=== PATIENT | male | born 1965 | race Hispanic/Latino ===

== ENCOUNTER 2025-02-09 13:53 | Outpatient (CLI) | payer SELFPAY | END 2025-02-09 13:54 | disposition home or self-care (01) | LOC: CSHWCC 13:53 | PROVIDERS: ATTEND Nurse Practitioner Family | DX: T21.22XD Burn of second degree of abdominal wall, subsequent encounter (principal); T24.012D Burn of unspecified degree of left thigh, subsequent encounter | CPT/HCPCS: 16025; 99214; G0463 ==

== ENCOUNTER 2025-02-16 13:51 | Outpatient (CLI) | payer SELFPAY | END 2025-02-16 13:52 | disposition home or self-care (01) | LOC: CSHWCC 13:51 | PROVIDERS: ATTEND Nurse Practitioner Family | DX: T21.22XD Burn of second degree of abdominal wall, subsequent encounter (principal); T24.012D Burn of unspecified degree of left thigh, subsequent encounter | CPT/HCPCS: 16020 ==

== ENCOUNTER 2025-03-03 14:15 | Outpatient (CLI) | payer SELFPAY | END 2025-03-03 14:16 | disposition home or self-care (01) | LOC: CSHWCC 14:15 | PROVIDERS: ATTEND Nurse Practitioner Family | DX: T21.22XD Burn of second degree of abdominal wall, subsequent encounter (principal); T24.012D Burn of unspecified degree of left thigh, subsequent encounter | CPT/HCPCS: 16020 ==

== ENCOUNTER 2025-03-23 13:46 | Outpatient (CLI) | payer SELFPAY | END 2025-03-23 13:47 | disposition home or self-care (01) | LOC: CSHWCC 13:46 | PROVIDERS: ATTEND Nurse Practitioner Family | DX: T21.22XD Burn of second degree of abdominal wall, subsequent encounter (principal); T24.012D Burn of unspecified degree of left thigh, subsequent encounter | CPT/HCPCS: 16020 ==